=== PATIENT | female | born 1995 | race Caucasian/White ===

== ENCOUNTER → 2018-07-01 | Outpatient (CLI) | payer OTHER ==
[2018-07-01 17:25] LABS: BASO # 0.1 10^3/uL (0.0-0.2); BASO % 0.6 % (0.0-1.0); EOS % 0.3 % (0.0-3.0); HEMATOCRIT 33.6 % (36.0-47.0); HEMOGLOBIN 11.5 g/dl (12.0-15.5); LYMPH # 2.7 10^3/uL (1.5-6.5); LYMPH % 25.4 % (24.0-44.0); MEAN CORPUSCULAR HEMOGLOBIN 30.7 pg (27.0-33.0); MEAN CORPUSCULAR HGB CONC 34.2 g/dl (32.0-36.5); MEAN CORPUSCULAR VOLUME 89.6 fl (80.0-96.0); MONO # 0.7 10^3/uL (0.0-0.8); MONO % 6.9 % (0.0-5.0); NEUTROPHILS % 66.4 % (36.0-66.0); PLATELET COUNT, AUTOMATED 402 10^3/uL (150-450); RED BLOOD COUNT 3.75 10^6/uL (4.00-5.40); WHITE BLOOD COUNT 10.5 10^3/uL (4.0-10.0)
[2018-07-01 21:04] LABS: CHLAMYDIA DNA AMPLIFICATION NEGATIVE (NEGATIVE); GC DNA AMPLIFICATION NEGATIVE (NEGATIVE)
[2018-07-02 10:02] LABS: HEPATITIS C VIRUS ABY INDEX 0.1 INDEX (<0.8); HIV 1&2 SCREEN CENTAUR NEGATIVE (NEGATIVE); RUBELLA IgG QUALITATIVE IMMUNE (IMMUNE)
== END ==
LOC: M SMT 15:47
PROVIDERS: ATTEND Advanced Practice Midwife
DX: Z34.81 Encounter for supervision of other normal pregnancy, first trimester (principal)

== ENCOUNTER → 2018-09-20 | Outpatient (CLI) | payer OTHER ==
--- NOTE | 2018-09-21 03:28 | REP ---
Clinical: Anatomical evaluation. Comparison: None . Findings: Examination demonstrates a single live intrauterine in breech presentation. motion is identified by technologist. Placenta is noted right lateral and grade grade 1 without evidence for placenta previa or abruption. Amniotic fluid volume is normal. Cervix measures 3.4 cm in length and appears closed. No evidence for nuchal cord. Gestational age by current measurements 19 weeks 6 days with STEPHAN 02/08/2019 . FHR equals 141 beats per minute. BPD 4.9 cm 20 weeks 5 days HC 16.8 cm 19 weeks 3 days AC 15.0 cm 20 weeks 2 days FL 3.2 cm 20 weeks 0 days HL 3.2 cm 20 weeks 3 days HC/AC ratio 1.12 Estimated weight 334 grams (55th percentile). Anatomical assessment demonstrates normal structures including cranium, choroid plexus, cavum, cerebellum/posterior fossa, facial features, lungs, four-chamber heart, diaphragm, stomach, cord insertion/three-vessel cord, kidneys/bladder, spine, and extremities. Impression: 1. Single live intrauterine in breech presentation demonstrating appropriate estimated weight. 2. Limited evaluation of the cardiac ventricular outflow tracts noted. Remainder of the anatomical assessment is complete and normal. Electronically Signed by Familia Taylor MD 09/21/2018 03:20 A
== END ==
LOC: M SMT 07:48
PROVIDERS: ATTEND Advanced Practice Midwife
DX: O32.1XX0 Maternal care for breech presentation, not applicable or unspecified (principal); Z36.89 Encounter for other specified antenatal screening; Z3A.19 19 weeks gestation of pregnancy

== ENCOUNTER → 2018-10-11 | Outpatient (CLI) | payer OTHER ==
--- NOTE | 2018-10-11 10:03 | REP ---
Obstetric sonography: History: Supervision of , followup anatomy. Findings: Scanning through the gravid uterus demonstrates a viable single intrauterine gestation in a cephalic lie. motion is observed and heart rate is recorded at 153 beats per minute. The placenta is posterior right lateral without evidence of previa or abruption, grade 1. Amniotic fluid is subjectively normal. Closed cervical length measures 4.0 cm, viewed transabdominally. No extrauterine abnormality is observed. No anomaly is seen. The following anatomic structures are identified and felt to be sonographically unremarkable: cranium, choroid plexus, cavum, cerebellum and posterior fossa, face and profile, lungs, four-chamber heart with left and right ventricular outflow tract views, diaphragm, left-sided stomach, abdominal wall cord insertion, three-vessel umbilical cord, kidneys and bladder, spine, upper and lower extremities. Biometry chart: BPD 6.1 cm 24 weeks 5 days Head circumference 21.0 cm 23 weeks 0 days Abdominal circumference 19.5 cm 24 weeks 1 day Femur length 4.2 cm 23 weeks 4 days Humeral length 4.1 cm 24 weeks 4 days Cerebellar diameter 2.3 cm 21 weeks 3 days HC/AC ratio normal 1.08. Cephalic index normal 0.84. Estimated weight 636 grams, 1 pound 6 ounces, 76th percentile for 22 week 6 days. Impression: Viable single intrauterine gestation at 23 week 6 days by today's composite criteria. Expected gestational age estimate based on prior sonography is 22 week 6 days. STEPHAN by prior sonography February 08, 2019. anatomic survey is felt to be complete. Electronically Signed by Edwin Hernandez MD 10/11/2018 10:32 A
== END ==
LOC: M SMT 08:02
PROVIDERS: ATTEND Advanced Practice Midwife
DX: Z34.02 Encounter for supervision of normal first pregnancy, second trimester (principal); Z3A.23 23 weeks gestation of pregnancy

== ENCOUNTER 2018-11-02 17:33 | Emergency (ER) | payer OTHER ==
[~2018-11-02] VITALS: Ht 172.7 cm; Wt 88.6 kg
[2018-11-02] MEDS ORDERED: PREN29TA4 PO (17:45)
[2018-11-02] MEDS ORDERED: VITAD1000T PO (17:45)
[2018-11-02] MEDS ORDERED: METOCLOPRAMIDE INJ 10MG/2ML VIAL (J2765) IV ONE (18:00)
[2018-11-02] MEDS ORDERED: NS 1,000 ML IV ONE (18:00)
[2018-11-02 18:34] LABS: BASO # 0.1 10^3/uL (0.0-0.2); BASO % 0.2 % (0.0-1.0); HEMATOCRIT 39.3 % (36.0-47.0); HEMOGLOBIN 13.5 g/dl (12.0-15.5); LYMPH # 0.3 10^3/uL (1.5-6.5); LYMPH % 1.7 % (24.0-44.0); MEAN CORPUSCULAR HEMOGLOBIN 31.7 pg (27.0-33.0); MEAN CORPUSCULAR HGB CONC 34.4 g/dl (32.0-36.5); MEAN CORPUSCULAR VOLUME 92.3 fl (80.0-96.0); MONO # 0.8 10^3/uL (0.0-0.8); MONO % 3.8 % (0.0-5.0); NEUTROPHILS # 18.8 10^3/uL (1.8-7.7); NEUTROPHILS % 93.8 % (36.0-66.0); PLATELET COUNT, AUTOMATED 380 10^3/uL (150-450); RED BLOOD COUNT 4.26 10^6/uL (4.00-5.40)
--- NOTE | 2018-11-02 19:12 | REP ---
Obstetric sonography: Limited study. History: Cramping. 26 weeks. Findings: Scanning demonstrates a single living intrauterine gestation in a cephalic lie. heart rate is recorded at 162 beats per minute. A fundal and right lateral placenta is seen without evidence of placenta previa. Amniotic fluid is subjectively normal. ANOOP is normal at 17.7 cm. Umbilical cord is seen draping across the shoulders. SD ratio in the umbilical cord artery by Doppler is normal at 2.6. Electronically Signed by Edwin Hernandez MD 11/02/2018 07:02 P
[2018-11-02 20:30] LABS: ALBUMIN 2.7 GM/DL (3.2-5.2); ALT/SGPT 13 U/L (12-78); BILIRUBIN,DIRECT < 0.1 MG/DL (0.0-0.2); BILIRUBIN,TOTAL 0.5 MG/DL (0.2-1.0); BLOOD UREA NITROGEN 13 MG/DL (7-18); CALCIUM LEVEL 8.1 MG/DL (8.5-10.1); CARBON DIOXIDE LEVEL 21 MEQ/L (21-32); CHLORIDE LEVEL 108 MEQ/L (98-107); GLOMERULAR FILTRATION RATE > 60.0 (>60); GLUCOSE, FASTING 90 MG/DL (70-100); LIPASE 105 U/L (73-393); POTASSIUM SERUM 3.9 MEQ/L (3.5-5.1); SODIUM LEVEL 140 MEQ/L (136-145); TOTAL PROTEIN 6.2 GM/DL (6.4-8.2)
[2018-11-02] MEDS ORDERED: ACETAMINOPHEN TAB 650MG DOSE (2X325MG) PO ONE (21:00)
[2018-11-02 21:31] LABS: CPK CREATINE PHOSPHOKINASE 55 U/L (26-192); MB/CK RELATIVE INDEX 2.18 (< OR =4); TROPONIN I < 0.02 NG/ML (< 0.10)
[2018-11-02] MEDS ORDERED: ACETAMINOPHEN 325 MG TAB PO ONE (22:45)
--- NOTE | 2018-11-02 23:09 | REPVR ---
EXAM: CT Abdomen and Pelvis Without Contrast EXAM DATE/TIME: 11/02/18 (9:28pm) CLINICAL HISTORY: 23 year old female (at 24 weeks) with abdominal pain. Possible appendicitis. TECHNIQUE: Imaging protocol: Axial computed tomography images of the abdomen and pelvis without contrast. Coronal and sagittal reformatted images were created and reviewed. Radiation optimization: All CT scans at this facility use at least one of these dose optimization techniques: automated exposure control; mA and/or kV adjustment per patient size (includes targeted exams where dose is matched to clinical indication); or iterative reconstruction. COMPARISON: OB US (limited) of 11/02/18 FINDINGS: Based on recent OB US of 10/11/18, the current expected age should be approx. 27 weeks. ABDOMEN: Liver: Normal. No solid mass. Gallbladder and bile ducts: Mildly distended gallbladder. No calcified stones. No ductal dilatation. Pancreas: Normal. No ductal dilatation. Spleen: Normal. No splenomegaly. Adrenals: Normal. No mass. Kidneys and ureters: Normal. No hydronephrosis. Stomach and bowel: No bowel obstruction. No mucosal thickening. Fluid-filled small and large bowel loops, without significant distention. Appendix: No evidence of appendicitis. No significant RLQ pathology is evident. PELVIS: Bladder: Unremarkable as visualized. Reproductive: Intrauterine noted (gravid uterus). ABDOMEN and PELVIS: Intraperitoneal space: Normal. No free air. No significant fluid collection. Bones/joints: No acute fracture nor dislocation. Soft tissues: Unremarkable. Vasculature: Normal. No abdominal aortic aneurysm. Lymph nodes: Normal. No enlarged lymph nodes. IMPRESSION: Intrauterine is noted (gravid uterus). No acute bowel pathology. No definite evidence of appendicitis. No significant RLQ pathology is evident. Electronically signed by: Soumya Merritt On 11/02/2018 23:08:34 PM
--- NOTE | 2018-11-02 23:29 | ECGEPIP ---
Stationary ECG Study [facility] - ED Test Date: 2018-11-02 Pat Name: FELIX CURIEL Department: Room: - Gender: F Payroll Benefits Clerk: CT : 1995 Requested By: RANDY Son PA-C Order Number: [id number] Reading MD: Willy Murray Measurements Intervals [place] Rate: 104 P: 47 ME: 144 QRS: 61 QRSD: 88 T: 23 QT: 348 QTc: 458 Interpretive Statements SINUS TACHYCARDIA NONSPECIFIC T-WAVE ABNORMALITY NO PRIORS FOR COMPARISON Electronically Signed On 11-02-2018 23:29:36 EDT by Willy Murray
[2018-11-02] MEDS ORDERED: REGL10TA6 PO (23:41)
[2018-11-02 23:43] VITALS: BP 114/56
--- NOTE | 2018-11-03 08:25 | REP ---
Right lower quadrant sonography: History: Vomiting. Rule out appendicitis. Findings: The appendix is not directly visualized. A normal right ovary is seen. No free fluid is seen. No mass, abscess, or adenopathy is observed. Impression: Negative right lower quadrant sonography. Appendix not directly visualized. No mass, free fluid or adenopathy. Electronically Signed by Edwin Hernandez MD 11/03/2018 09:16 A
== END 2018-11-02 23:52 | disposition home or self-care (01) ==
LOC: M ED 17:33
DX: O99.612 Diseases of the digestive system complicating pregnancy, second trimester (principal); K52.9 Noninfective gastroenteritis and colitis, unspecified; Z3A.24 24 weeks gestation of pregnancy

== ENCOUNTER → 2018-11-16 | Outpatient (CLI) | payer OTHER ==
[~2018-11-16] MED LIST: PREN29TA4 PO; REGL10TA6 PO; VITAD1000T PO
[2018-11-16 13:17] LABS: HEMATOCRIT 35.1 % (36.0-47.0); HEMOGLOBIN 11.5 g/dl (12.0-15.5); MEAN CORPUSCULAR HEMOGLOBIN 31.3 pg (27.0-33.0); MEAN CORPUSCULAR HGB CONC 32.8 g/dl (32.0-36.5); MEAN CORPUSCULAR VOLUME 95.6 fl (80.0-96.0); PLATELET COUNT, AUTOMATED 434 10^3/uL (150-450); RED BLOOD COUNT 3.67 10^6/uL (4.00-5.40); WHITE BLOOD COUNT 11.3 10^3/uL (4.0-10.0)
== END ==
LOC: M SMT 09:05
PROVIDERS: ATTEND Advanced Practice Midwife
DX: Z34.02 Encounter for supervision of normal first pregnancy, second trimester (principal); Z3A.00 Weeks of gestation of pregnancy not specified

== ENCOUNTER → 2019-01-18 | Outpatient (REF) | payer OTHER | LOC: M LAB REF 13:09 | PROVIDERS: ATTEND Advanced Practice Midwife | DX: Z34.83 Encounter for supervision of other normal pregnancy, third trimester (principal) ==

== ENCOUNTER → 2019-02-08 | Outpatient (CLI) | payer OTHER ==
[~2019-02-08] MED LIST changes: +ACET-683 PO; +IBUP80TA PO; +MAPA500T2 PO; +TUMS500C PO; +TUMS750C22 PO
[2019-02-08 12:22] LABS: ALBUMIN 3.2 GM/DL (3.2-5.2); ALT/SGPT 13 U/L (12-78); BILIRUBIN,TOTAL 0.2 MG/DL (0.2-1.0); BLOOD UREA NITROGEN 7 MG/DL (7-18); CALCIUM LEVEL 9.6 MG/DL (8.5-10.1); CARBON DIOXIDE LEVEL 25 MEQ/L (21-32); CHLORIDE LEVEL 105 MEQ/L (98-107); CREATININE FOR GFR 0.47 MG/DL (0.55-1.30); GLOMERULAR FILTRATION RATE > 60.0 (>60); GLUCOSE, FASTING 83 MG/DL (70-100); SODIUM LEVEL 137 MEQ/L (136-145); TOTAL PROTEIN 6.8 GM/DL (6.4-8.2)
== END ==
LOC: M WUC 10:08
PROVIDERS: ATTEND Obstetrics & Gynecology
DX: O26.893 Other specified pregnancy related conditions, third trimester (principal)

== ENCOUNTER 2019-02-09 07:22 | Inpatient (IN) | payer OTHER ==
[~2019-02-09] VITALS: Ht 175.3 cm; Wt 98.9 kg
[2019-02-09] VITALS (15 sets, daily range): BP systolic 100–151; BP diastolic 51–85
[~2019-02-09 07:22] MED LIST changes: -ACET-683 PO; -IBUP80TA PO; -MAPA500T2 PO; -TUMS500C PO; -TUMS750C22 PO
[2019-02-09] MEDS ORDERED: MAPA500T2 PO (07:45)
[2019-02-09] MEDS ORDERED: TUMS500C PO (07:45)
[2019-02-09] MEDS ORDERED: TUMS750C22 PO (07:45)
[2019-02-09 09:07] LABS: HEMATOCRIT 34.2 % (36.0-47.0); HEMOGLOBIN 11.7 g/dl (12.0-15.5); MEAN CORPUSCULAR HEMOGLOBIN 31.4 pg (27.0-33.0); MEAN CORPUSCULAR HGB CONC 34.2 g/dl (32.0-36.5); MEAN CORPUSCULAR VOLUME 91.7 fl (80.0-96.0); PLATELET COUNT, AUTOMATED 378 10^3/uL (150-450); RED BLOOD COUNT 3.73 10^6/uL (4.00-5.40); WHITE BLOOD COUNT 14.1 10^3/uL (4.0-10.0)
--- NOTE | 2019-02-09 09:56 | HPE ---
DATE OF ADMISSION: 02/09/2019 Jimena is a 23-year-old, 1, para 0, at 38-5/7 weeks gestation, with an estimated date of confinement (EDC) of 02/18/2019, based on first trimester ultrasound. She presents to labor and delivery today with report of onset of uncomfortable contractions at approximately 0200 hours. They progressively have become more uncomfortable throughout the night. She does report a little pink show. Denies heavy vaginal bleeding and leakage of fluid. The fetus has been active. care was initiated at [facility] in the first trimester. course complicated by a history of anxiety. OBSTETRIC HISTORY: Primigravid. OBSTETRIC LABS: O+, antibody screen negative, rubella immune, VDRL nonreactive. Urine culture no growth. Hep B surface antigen negative, HIV negative. Hep C antibody nonreactive. Gonorrhea and chlamydia negative. She did decline genetic serum screening labs. Her gestational diabetic screening was normal at 91 and her GBS is negative. PAST MEDICAL HISTORY: Childhood varicella, anxiety. SURGERIES: None. FAMILY HISTORY: Diabetes, hypertension, anxiety, sclerosis. Developmental delay. SOCIAL HISTORY: The patient is . Her is at her bedside and supportive. She is a nonsmoker. Denies alcohol and drug use. There is no history of sexually transmitted infections and denies history of abuse physical, sexual, and emotional. ALLERGIES: NO KNOWN DRUG ALLERGIES. CURRENT MEDICATIONS: - vitamin - vitamin D 1000 units OBJECTIVE: Temperature 98, pulse 79, respirations 18, blood pressure is 100/51. She is alert and oriented times three. She does appear uncomfortable with her contractions. heart rate is 135 with moderate variability, positive accelerations, no decelerations observed. Contractions every 3-4 minutes, palpate moderate. Abdomen is gravid, cephalic presentation. Estimated weight 7-1/2 pounds. Sterile vaginal exam: 4 cm dilated, 90% effaced, -1 station. ASSESSMENT: Intrauterine at 38-5/7, heart rate category 1, active labor. PLAN: Admit patient to labor and delivery. Out of bed ad arianna. Regular diet at this time. Routine lab work. Saline lock. I did verbally consent the patient for emergency surgery and blood products if necessary. I do anticipate continued labor progress and a spontaneous vaginal delivery. Will consider artifical rupture of membranes (AROM) and/or IV Pitocin if necessary for labor augmentation. MTDD
[2019-02-09] MEDS ORDERED: OXYTOCIN 30 UNITS IN 0.9% NaCl 500ML IV BAG (J2590) As Ordered ONE (12:30)
[2019-02-09] MEDS ORDERED: ANUSOL HC CREAM 30GM TOP PRN (16:30)
[2019-02-09] MEDS ORDERED: ACETAMINOPHEN 500 MG TAB PO PRN (16:30)
[2019-02-09] MEDS ORDERED: RHOGAM 300 MCG (1500 IU) INJ (J2790) IM SCH (16:30)
[2019-02-09] MEDS ORDERED: MEASLES,MUMPS,RUBELLA VACCINE INJ (MMR-II) (90707) SC SCH (16:30)
[2019-02-09] MEDS ORDERED: IBUPROFEN 600 MG TAB PO PRN (16:30)
[2019-02-09] MEDS ORDERED: ONDANSETRON 4MG/2ML VIAL (J2405) IV PRN (16:30)
[2019-02-09] MEDS ORDERED: ACETAMINOPHEN TAB 650MG DOSE (2X325MG) PO PRN (16:30)
[2019-02-09] MEDS ORDERED: OXYTOCIN INJ 10 UNITS/ML VIAL (J2590) IM ONE (16:30)
[2019-02-09] MEDS ORDERED: METHYLERGONOVINE MALEATE 0.2 MG TAB PO PRN (16:30)
[2019-02-09] MEDS ORDERED: METHYLERGONOVINE MALEATE 0.2 MG/ML VIAL (J2210) IM ONE (16:30)
[2019-02-09] MEDS ORDERED: LIDOCAINE 1% MDV 20ML VIAL INFIL ONE (16:30)
[2019-02-09] MEDS ORDERED: DOCUSATE SODIUM 100 MG CAP PO PRN (16:30)
[2019-02-09] MEDS ORDERED: DIBUCAINE 1% OINTMENT 30GM TOP PRN (16:30)
[2019-02-09] MEDS ORDERED: IBUPROFEN 800 MG TAB PO PRN (16:30)
--- NOTE | 2019-02-09 17:02 | DN ---
DATE OF DELIVERY: 02/09/2019 Jimena is a 23-year-old 1, para 1-0-0-1 now who was admitted to labor and delivery in active labor. She coped with her labor physiologically. She had spontaneous rupture of membranes at 1120 hours for a small amount of clear fluid. She reached complete dilation at 1308 hours. She pushed to a normal spontaneous vaginal delivery of a live male infant in occiput anterior (OA) position with restitution to right occiput transverse (ROT) position at 1539 hours. The shoulders delivered with gentle downward guidance and the corpus immediately followed. male mouth and nares were bulb suctioned and placed on maternal abdomen for bonding and stimulation. Cord was clamped times two once pulsations ceased and cut by the father of the baby under my direction. Spontaneous expulsion of an intact placenta with three-vessel cord by Archibald mechanism was at 1547 hours. Uterine hemostasis achieved with uterine fundal massage, Pitocin 10 units IM, Methergine 0.2 mg IM. Estimated blood loss 400 mL. [place] male, 8, 8, weight 4170 grams, 9 pounds 3 ounces and family is undecided as to his name. At the close of delivery lap counts, needle counts and instrument counts were correct and verified.
[2019-02-10 05:45] VITALS: BP 113/56
[2019-02-10] MEDS: PRENATAL VITAMINS CHEWABLE TABLET PO SCH (07:47)
[2019-02-10 18:12] VITALS: BP 111/65
[2019-02-11 05:30] VITALS: BP 104/63
[2019-02-11] MEDS ORDERED: ACET-683 PO (06:54)
[2019-02-11] MEDS ORDERED: IBUP80TA PO (06:54)
[2019-02-11] MEDS: PRENATAL VITAMINS CHEWABLE TABLET PO SCH (09:00)
== END 2019-02-11 17:55 | disposition home or self-care (01) | DRG 807 ==
LOC: M LDO 07:22 → M LDI 08:18 → M OBS 18:31
PROVIDERS: ADMIT Advanced Practice Midwife; ATTEND Advanced Practice Midwife
PROC: 10E0XZZ Delivery of Products of Conception, External Approach (ICD-10-PCS; principal; 2019-02-09)
DX: O80 Encounter for full-term uncomplicated delivery (principal); Z37.0 Single live birth; Z3A.38 38 weeks gestation of pregnancy

== ENCOUNTER → 2019-03-25 | Outpatient (REF) | payer OTHER ==
[~2019-03-25] MED LIST changes: +ACET-683 PO; +CHOL100029 PO; +IBUP80TA PO; +MAPA500T2 PO; +TUMS500C PO; +TUMS750C22 PO; -VITAD1000T PO
== END ==
LOC: M LAB REF 09:21
PROVIDERS: ATTEND Physician Assistant
DX: R30.0 Dysuria (principal)

== ENCOUNTER 2019-05-25 05:32 | Emergency (ER) | payer OTHER ==
[~2019-05-25] VITALS: Ht 172.7 cm; Wt 77.3 kg
--- NOTE | 2019-05-25 06:55 | REPVR ---
PROCEDURE INFORMATION: Exam: CT Abdomen And Pelvis Without Contrast Exam date and time: 05/25/2019 6:21 AM Clinical history: 23 years old, female; Abdominal pain; Flank; Right; Additional info: Right renal colic TECHNIQUE: Imaging protocol: Computed tomography of the abdomen and pelvis without contrast. Radiation optimization: All CT scans at this facility use at least one of these dose optimization techniques: automated exposure control; mA and/or kV adjustment per patient size (includes targeted exams where dose is matched to clinical indication); or iterative reconstruction. COMPARISON: CT ABD PELVIS W/O CONTRAST 11/02/2018 9:19 PM FINDINGS: Detailed evaluation of the abdominal and pelvic viscera is somewhat limited in the absence of intravenous contrast. Pleural space: No acute airspace or pleural disease. Liver: No focal hepatic mass. Gallbladder and bile ducts: No cholelithiasis or biliary ductal dilatation. Pancreas: No pancreatic mass or ductal dilatation. Spleen: No splenomegaly. Adrenals: Unremarkable adrenals. Kidneys and ureters: Normal renal morphology. No renal calculus or hydronephrosis. Stomach and bowel: No significant small bowel dilatation. Prominent stool suggesting constipation. Diverticula, without pericolonic inflammation. Appendix: No acute appendicitis. Intraperitoneal space: No significant free fluid. Vasculature: Normal caliber of the abdominal aorta. Lymph nodes: Subcentimeter lymph nodes. Bladder: Nondistended bladder. 1 mm bladder calculus contiguous with the posterior bladder wall midline. Reproductive: Unremarkable as visualized. Bones/joints: No acute osseous pathology. 5 mm bone island in the right pubis. IMPRESSION: 1. 1 mm bladder calculus contiguous with the posterior bladder wall midline. 2. Additional findings as described above. Electronically signed by: Carmelo Jacobo On 05/25/2019 06:54:37 AM
[2019-05-25 07:10] VITALS: BP 117/78
== END 2019-05-25 07:42 | disposition home or self-care (01) ==
LOC: M ED 05:32
DX: N21.0 Calculus in bladder (principal)

== ENCOUNTER → 2019-08-30 | Outpatient (REF) | payer OTHER | LOC: M WHC 16:52 | PROVIDERS: ATTEND Advanced Practice Midwife | DX: Z12.4 Encounter for screening for malignant neoplasm of cervix (principal) | CPT/HCPCS: G0123; G0463 ==

== ENCOUNTER → 2020-08-27 | Outpatient (REF) | payer OTHER | LOC: M PLALAB 10:53 | PROVIDERS: ATTEND Advanced Practice Midwife | DX: R10.2 Pelvic and perineal pain (principal) ==

== ENCOUNTER → 2020-08-29 | Outpatient (CLI) | payer OTHER | LOC: M PLALAB 11:18 | PROVIDERS: ATTEND Advanced Practice Midwife | DX: R10.2 Pelvic and perineal pain (principal) ==

== ENCOUNTER → 2020-08-30 | Outpatient (CLI) | payer OTHER ==
--- NOTE | 2020-08-30 19:07 | REP ---
INDICATION: R10.32 LLQ ABD PAIN COMPARISON: None. TECHNIQUE: Transabdominal and transvaginal 1st trimester obstetrical ultrasound with color Doppler evaluation. FINDINGS: Single live early intrauterine is appreciated. Gestational sac with yolk sac and pole identified. [place]-rump length of 6 mm corresponds to 6 weeks 3 days gestational age with estimated date of delivery 04/22/2021. heart rate equals 114 beats per minute. Left corpus luteal cyst noted. IMPRESSION: Single live early intrauterine at 6 weeks 3 days gestational age. Complete anatomical assessment should be performed and 19-20 weeks. <Electronically signed by Familia Taylor > 08/30/20 [id number]
== END ==
LOC: M WHC 12:23
PROVIDERS: ATTEND Advanced Practice Midwife
DX: R10.32 Left lower quadrant pain (principal)

== ENCOUNTER → 2020-09-14 | Outpatient (REF) | payer OTHER ==
[2020-09-14 16:06] LABS: HEMATOCRIT 34.9 % (36.0-47.0); HEMOGLOBIN 11.5 g/dl (12.0-15.5); MEAN CORPUSCULAR HEMOGLOBIN 29.6 pg (27.0-33.0); MEAN CORPUSCULAR VOLUME 89.9 fl (80.0-96.0); PLATELET COUNT, AUTOMATED 386 10^3/uL (150-450); RED BLOOD COUNT 3.88 10^6/uL (4.00-5.40); WHITE BLOOD COUNT 9.6 10^3/uL (4.0-10.0)
[2020-09-14 17:23] LABS: HEPATITIS C VIRUS ABY INDEX < 0.0 INDEX (<0.8); HIV 1&2 SCREEN CENTAUR NEGATIVE (NEGATIVE)
== END ==
LOC: M PLALAB 14:03
PROVIDERS: ATTEND Advanced Practice Midwife
DX: O09.291 Supervision of pregnancy with other poor reproductive or obstetric history, first trimester (principal); Z3A.00 Weeks of gestation of pregnancy not specified

== ENCOUNTER → 2020-11-23 | Outpatient (CLI) | payer OTHER ==
--- NOTE | 2020-11-23 10:06 | REP ---
INDICATION: ANATOMY COMPARISON: 08/30/2020 TECHNIQUE: Transabdominal obstetrical ultrasound with color Doppler evaluation. FINDINGS: Examination demonstrates a single live intrauterine in variable presentation. motion is identified by technologist. Placenta is noted posterior and grade 0 without evidence for placenta previa or abruption. Amniotic fluid volume is normal. Cervix measures 3.3 cm in length and appears closed.. Gestational age by LMP and 1st U/S 18 weeks 4 days with STEPHAN 04/22/2021. Gestational age by current measurements 19 weeks 0 days with STEPHAN 04/19/2021. FHR equals 149 beats per minute. Estimated weight 259 grams (61stpercentile). Anatomical assessment demonstrates normal structures including cranium, choroid plexus, cavum, cerebellum/posterior fossa, facial features, lungs, four-chamber heart/right ventricular outflow tract, diaphragm, stomach, cord insertion/three-vessel cord, kidneys/bladder, spine, and extremities. Echogenic focus within the left cardiac ventricle likely prominent chordae tendineae. IMPRESSION: Single live intrauterine in variable presentation demonstrating appropriate estimated weight. Anatomical assessment as noted above. <Electronically signed by Familia Taylor > 11/23/20 1002
== END ==
LOC: M WHC 08:53
PROVIDERS: ATTEND Advanced Practice Midwife
DX: O28.3 Abnormal ultrasonic finding on antenatal screening of mother (principal); Z3A.18 18 weeks gestation of pregnancy